=== PATIENT | male | born 1975 | race African-American/Black ===

== ENCOUNTER 2019-05-21 06:30 | Day surgery (SDC) | payer OTHER, MEDICAID ==
[~2019-05-21] VITALS: Ht 167.6 cm; Wt 52.3 kg
[~2019-05-21 06:30] MED LIST: RINGERS SOLUTION,LACTATED 1,000 ML IV ONE
[2019-05-21] MEDS ORDERED: DEXAMETHASONE SOD PHOS 4 MG/ML VIAL IVP ONE (06:31)
[2019-05-21] MEDS ORDERED: LIDOCAINE/PF 2% 5 ML VIAL IM ONE (06:31)
[2019-05-21] MEDS ORDERED: ONDANSETRON HCL 4 MG/2 ML VIAL IVP ONE (06:31)
[2019-05-21] MEDS ORDERED: 0.9% SODIUM CHLORIDE 10 ML VIAL IVP ONE (06:31)
[2019-05-21] MEDS ORDERED: SUCCINYLCHOLINE CHLORIDE 20 MG/ML 10 ML VIAL IVP ONE (06:31)
[2019-05-21] MEDS ORDERED: EPHEDrine SULFATE 50 MG/ML VIAL IM ONE (06:31)
[2019-05-21] MEDS ORDERED: PROPOFOL 1% 20 ML VIAL IVP ONE (06:31)
[2019-05-21] MEDS ORDERED: FentaNYL CITRATE-PF 100 MCG/2 ML VIAL IVP ONE (06:31)
[2019-05-21] MEDS ORDERED: RINGERS SOLUTION,LACTATED 1,000 ML IV ONE (07:00)
[2019-05-21] MEDS ORDERED: SODIUM CHLORIDE 0.9% 100 ML ONE (07:04)
[2019-05-21] MEDS ORDERED: AMPICILLIN SODIUM 1 GM/VIAL ONE (07:04)
[2019-05-21 07:46] LABS: BASOPHILS % (AUTO) 0.9 % (0.0-2.0); HEMATOCRIT 43.6 % (41-53); HEMOGLOBIN 14.8 g/dL (13.5-17.5); LYMPHOCYTES # (AUTO) 0.9 K/uL (1.0-4.8); LYMPHOCYTES % (AUTO) 23.2 % (22.0-44.0); MEAN CORPUSCULAR HEMOGLOBIN 31.3 pg (26.0-34.0); MEAN CORPUSCULAR VOLUME 92 fL (80-100); MONOCYTES # (AUTO) 0.5 K/uL (0.1-1.0); MONOCYTES % (AUTO) 11.9 % (2.0-9.0); NEUTROPHILS # (AUTO) 2.5 K/uL (1.8-7.7); PLATELET COUNT (AUTO) 221 K/uL (150-450); RED BLOOD CELL COUNT(AUTO) 4.74 MIL/uL (4.50-5.90); RED CELL DISTRIBUTION WIDTH 12.6 % (11.5-14.5)
[2019-05-21 07:55] LABS: ANION GAP 6 mmol/L (8-16); CALCIUM, TOTAL 8.9 mg/dL (8.8-10.5); CARBON DIOXIDE 31 mmol/L (22-29); CHLORIDE 105 mmol/L (98-107); CREATININE 0.87 mg/dL (0.60-1.30); GLOMERULAR FILTR. RATE CALC > 60 mL/min (>60); GLUCOSE,RANDOM 85 mg/dL (70-110); POTASSIUM 4.7 mmol/L (3.5-5.1); SODIUM SERUM 142 mmol/L (136-145); UREA NITROGEN, BLOOD 15 mg/dL (7-18)
[2019-05-21 07:57] LABS: INR 1.1 (0.9-1.1)
[2019-05-21 08:01] LABS: ALANINE AMINOTRANSFERASE 25 U/L (12-78); ALBUMIN 3.5 g/dL (3.4-5.0); ALKALINE PHOSPHATASE 176 U/L (46-116); ASPARTATE AMINOTRANSFERASE 15 U/L (15-37); BILIRUBIN,TOTAL 0.3 mg/dL (0.1-1.0); TOTAL PROTEIN, SERUM 8.4 g/dL (6.4-8.2)
[2019-05-21] MEDS ORDERED: MULT-1203 PO (08:22)
[2019-05-21] MEDS ORDERED: BUSP10TA23 PO (08:22)
[2019-05-21] MEDS ORDERED: DOCU-275 PO (08:22)
[2019-05-21] MEDS ORDERED: MOM30 PO (08:22)
[2019-05-21] MEDS ORDERED: SENN8.6T90 PO (08:22)
[2019-05-21] MEDS ORDERED: FOLI1 PO (08:22)
[2019-05-21] MEDS ORDERED: MINE454C11 TP (08:22)
[2019-05-21] MEDS ORDERED: DEBROX AU (08:22)
[2019-05-21] MEDS ORDERED: PHEN100C23 PO (08:22)
[2019-05-21] MEDS ORDERED: ASPI-1182 PO (08:22)
[2019-05-21] MEDS ORDERED: CLON.5 PO (08:22)
[2019-05-21] MEDS ORDERED: CHOL200059 PO (08:22)
[2019-05-21] MEDS ORDERED: HYDROmorphone 2 MG/ML SYRINGE IVP PRN (09:30)
[2019-05-21] MEDS ORDERED: MEPERIDINE-PF 25 MG/ML VIAL IVP PRN (09:30)
[2019-05-21] MEDS ORDERED: FentaNYL CITRATE-PF 100 MCG/2 ML VIAL IVP PRN (09:30)
[2019-05-21] MEDS ORDERED: OXYGEN THERAPY IH SCH (20:00)
== END 2019-05-21 12:55 | disposition home or self-care (01) ==
LOC: SURGERY 06:30
PROVIDERS: ATTEND Dentist General Practice
DX: K02.9 Dental caries, unspecified (principal); K05.30 Chronic periodontitis, unspecified; K03.6 Deposits [accretions] on teeth; F41.9 Anxiety disorder, unspecified; G40.909 Epilepsy, unspecified, not intractable, without status epilepticus; G80.9 Cerebral palsy, unspecified; F72 Severe intellectual disabilities; Z88.2 Allergy status to sulfonamides; Z88.6 Allergy status to analgesic agent; Z79.899 Other long term (current) drug therapy; Z79.01 Long term (current) use of anticoagulants; Z98.890 Other specified postprocedural states
CPT/HCPCS: 36415; 41899; 71045; 80053; 85025; 85610; 85730; 93005; J0290; J0330; J1100; J2405; J2704; J3010; J3490 ×2; J7050; J7120

== ENCOUNTER 2023-01-31 06:43 | Day surgery (SDC) | payer OTHER, MEDICAID ==
[~2023-01-31] VITALS: Ht 167.6 cm; Wt 53.2 kg
[~2023-01-31 06:43] MED LIST changes: +ASPI-1444 PO; +BUSP10TA23 PO; +CHOL200016 PO; +CLON-592 PO; +DEBROX AU; +DOCU-385 PO; +FOLI-130 PO; +MAGN-169 PO; +MINE454C11 TP; +MULT-1203 PO; +PHEN100C23 PO; +SENN8.6T90 PO
[2023-01-31] MEDS ORDERED: AMPICILLIN SODIUM 2 GM/NS 100 ML IV ONE (07:45)
[2023-01-31 07:54] LABS: BASOPHILS % (AUTO) 0.6 % (0.0-2.0); HEMATOCRIT 41.4 % (41-53); HEMOGLOBIN 13.9 g/dL (13.5-17.5); LYMPHOCYTES % (AUTO) 28.3 % (22.0-44.0); MEAN CORPUSCULAR HEMOGLOBIN 31.2 pg (26.0-34.0); MEAN CORPUSCULAR HGB CONC 33.7 G/dL (31.0-37.0); MEAN CORPUSCULAR VOLUME 93 fL (80-100); MONOCYTES # (AUTO) 0.3 K/uL (0.1-1.0); MONOCYTES % (AUTO) 8.8 % (2.0-9.0); NEUTROPHILS # (AUTO) 2.2 K/uL (1.8-7.7); NEUTROPHILS % (AUTO) 61.3 % (40.0-70.0); PLATELET COUNT (AUTO) 218 K/uL (150-450); RED BLOOD CELL COUNT(AUTO) 4.46 MIL/uL (4.50-5.90); RED CELL DISTRIBUTION WIDTH 12.7 % (11.5-14.5)
[2023-01-31] MEDS ORDERED: ACET-2247 PO (08:01)
[2023-01-31] MEDS ORDERED: ASCO500 PO (08:02)
[2023-01-31 08:07] LABS: INR 1.1 (0.9-1.1); PROTHROMBIN TIME 11.6 SEC (9.4-11.6)
[2023-01-31 08:13] LABS: ANION GAP 7 mmol/L (8-16); CALCIUM, TOTAL 9.7 mg/dL (8.8-10.5); CARBON DIOXIDE 30 mmol/L (22-29); CHLORIDE 104 mmol/L (98-107); CREATININE 0.86 mg/dL (0.60-1.30); GLOMERULAR FILTR. RATE CALC > 60 mL/min (>60); GLUCOSE,RANDOM 86 mg/dL (70-110); POTASSIUM 3.8 mmol/L (3.5-5.1); SODIUM SERUM 141 mmol/L (136-145)
[2023-01-31 08:18] LABS: ALANINE AMINOTRANSFERASE 12 U/L (12-78); ALBUMIN 3.5 g/dL (3.4-5.0); ALKALINE PHOSPHATASE 176 U/L (46-116); ASPARTATE AMINOTRANSFERASE 12 U/L (15-37); BILIRUBIN,TOTAL 0.2 mg/dL (0.1-1.0); TOTAL PROTEIN, SERUM 8.4 g/dL (6.4-8.2)
[2023-01-31] MEDS ORDERED: ONDANSETRON HCL 4 MG/2 ML VIAL IVP ONE (12:00)
[2023-01-31] MEDS ORDERED: DEXAMETHASONE SOD PHOS 4 MG/ML VIAL IVP ONE (12:00)
[2023-01-31] MEDS ORDERED: FentaNYL CITRATE PF 100 MCG/2 ML VIAL IVP ONE (12:00)
[2023-01-31] MEDS ORDERED: SUGAMMADEX SODIUM 200 MG/2 ML VIAL IVP ONE (12:00)
[2023-01-31] MEDS ORDERED: ROCURONIUM BROMIDE 10 MG/ML 5 ML VIAL IVP ONE (12:00)
[2023-01-31] MEDS ORDERED: LIDOCAINE/PF 2% 5 ML VIAL IM ONE (12:00)
[2023-01-31] MEDS ORDERED: PROPOFOL 1% 20 ML VIAL IVP ONE (12:00)
== END 2023-01-31 13:35 | disposition home or self-care (01) ==
LOC: SURGERY 06:43
PROVIDERS: ATTEND Dentist General Practice
DX: K05.30 Chronic periodontitis, unspecified (principal); K02.9 Dental caries, unspecified; K03.6 Deposits [accretions] on teeth; Z79.01 Long term (current) use of anticoagulants; Z79.899 Other long term (current) drug therapy; F41.9 Anxiety disorder, unspecified; G43.909 Migraine, unspecified, not intractable, without status migrainosus; K59.00 Constipation, unspecified; G80.9 Cerebral palsy, unspecified; F63.81 Intermittent explosive disorder
CPT/HCPCS: 41899; 71045; 80053; 85025; 85610; 85730; 36415; 93005; J0290; J2704; J1100; J3010; J3490 ×2; J2405; Q9967

== ENCOUNTER 2024-03-05 06:22 | Day surgery (SDC) | payer OTHER, MEDICAID ==
[~2024-03-05] VITALS: Ht 167.6 cm; Wt 55.9 kg
[~2024-03-05 06:22] MED LIST changes: +ACET-2247 PO; +ASCO500 PO; -DEBROX AU; -MINE454C11 TP
[2024-03-05] MEDS ORDERED: SODIUM CHLORIDE 0.9% 1,000 ML IV ONE (07:00)
[2024-03-05 07:57] LABS: BASOPHILS % (AUTO) 0.8 % (0.0-2.0); EOSINOPHILS % (AUTO) 1.5 % (1.0-6.0); HEMATOCRIT 40.9 % (41-53); HEMOGLOBIN 13.7 g/dL (13.5-17.5); LYMPHOCYTES # (AUTO) 0.8 K/uL (1.0-4.8); LYMPHOCYTES % (AUTO) 23.5 % (22.0-44.0); MEAN CORPUSCULAR HEMOGLOBIN 30.9 pg (26.0-34.0); MEAN CORPUSCULAR HGB CONC 33.5 G/dL (31.0-37.0); MEAN CORPUSCULAR VOLUME 92 fL (80-100); MONOCYTES # (AUTO) 0.5 K/uL (0.1-1.0); MONOCYTES % (AUTO) 12.6 % (2.0-9.0); NEUTROPHILS # (AUTO) 2.2 K/uL (1.8-7.7); NEUTROPHILS % (AUTO) 61.6 % (40.0-70.0); PLATELET COUNT (AUTO) 204 K/uL (150-450); RED BLOOD CELL COUNT(AUTO) 4.43 MIL/uL (4.50-5.90); RED CELL DISTRIBUTION WIDTH 12.7 % (11.5-14.5); WHITE BLOOD COUNT (AUTO) 3.6 K/uL (4.5-11.0)
[2024-03-05 08:05] LABS: PROTHROMBIN TIME 10.9 SEC (9.4-11.6)
[2024-03-05 08:09] LABS: ANION GAP 9 mmol/L (8-16); CALCIUM, TOTAL 9.2 mg/dL (8.8-10.5); CARBON DIOXIDE 30 mmol/L (22-29); CHLORIDE 101 mmol/L (98-107); CREATININE 0.76 mg/dL (0.60-1.30); GLOMERULAR FILTR. RATE CALC > 60 mL/min (>60); GLUCOSE,RANDOM 89 mg/dL (70-110); POTASSIUM 3.9 mmol/L (3.5-5.1); SODIUM SERUM 139 mmol/L (136-145); UREA NITROGEN, BLOOD 13 mg/dL (7-18)
[2024-03-05 08:19] LABS: ALANINE AMINOTRANSFERASE 19 U/L (12-78); ALKALINE PHOSPHATASE 128 U/L (46-116); ASPARTATE AMINOTRANSFERASE 15 U/L (15-37); BILIRUBIN,TOTAL 0.2 mg/dL (0.1-1.0); TOTAL PROTEIN, SERUM 8.3 g/dL (6.4-8.2)
[2024-03-05] MEDS ORDERED: AMPICILLIN SODIUM 2 GM/NS 100 ML IV ONE (08:19)
[2024-03-05] MEDS ORDERED: RINGERS SOLUTION,LACTATED 1,000 ML IV ONE (08:45)
[2024-03-05] MEDS ORDERED: FentaNYL CITRATE PF 100 MCG/2 ML VIAL IVP PRN (13:15)
[2024-03-05] MEDS: LIDOCAINE 1%/EPI 1:200,000/PF 30 ML VIAL ONE (15:18)
[2024-03-05] MEDS ORDERED: OXYGEN THERAPY IH SCH (20:00)
== END 2024-03-05 15:15 | disposition home or self-care (01) ==
LOC: SURGERY 06:22
PROVIDERS: ATTEND Dentist General Practice
DX: K05.30 Chronic periodontitis, unspecified (principal); K02.9 Dental caries, unspecified; G80.9 Cerebral palsy, unspecified; Z79.899 Other long term (current) drug therapy
CPT/HCPCS: 41899; 71045; 80053; 85025; 85610; 85730; 36415; 93005; J0290; J3490; J7120

== ENCOUNTER 2025-06-17 06:03 | Day surgery (SDC) | payer OTHER, MEDICAID ==
[~2025-06-17] VITALS: Ht 167.6 cm; Wt 55.9 kg
[~2025-06-17 06:03] MED LIST changes: -RINGERS SOLUTION,LACTATED 1,000 ML IV ONE; -SENN8.6T90 PO; +[UNRECOGNIZED DRUG - CODE] PO
[2025-06-17] MEDS ORDERED: RINGERS SOLUTION,LACTATED 1,000 ML IV ONE (07:19)
[2025-06-17 07:26] LABS: PLATELET COUNT (AUTO) 214 K/uL (150-450); RED BLOOD CELL COUNT(AUTO) 4.59 MIL/uL (4.50-5.90); RED CELL DISTRIBUTION WIDTH 13.1 % (11.5-14.5); WHITE BLOOD COUNT (AUTO) 2.8 K/uL (4.5-11.0)
[2025-06-17 07:41] LABS: CALCIUM, TOTAL 8.9 mg/dL (8.8-10.5); CREATININE 0.68 mg/dL (0.60-1.30); GLOMERULAR FILTR. RATE CALC > 60 mL/min (>60); GLUCOSE,RANDOM 84 mg/dL (70-110); SODIUM SERUM 139 mmol/L (136-145); UREA NITROGEN, BLOOD 14 mg/dL (7-18)
[2025-06-17 07:44] LABS: ASPARTATE AMINOTRANSFERASE 16 U/L (15-37); TOTAL PROTEIN, SERUM 8.2 g/dL (6.4-8.2)
[2025-06-17] MEDS ORDERED: AMPICILLIN SODIUM 2 GM/NS 100 ML IV ONE (08:09)
[2025-06-17] MEDS: RINGERS SOLUTION,LACTATED 1,000 ML IV ONE (08:58)
[2025-06-17] MEDS ORDERED: GLYCOPYRROLATE 0.2 MG/ML VIAL ONE (09:01)
[2025-06-17] MEDS ORDERED: SUGAMMADEX SODIUM 200 MG/2 ML VIAL IVP ONE (09:01)
[2025-06-17] MEDS ORDERED: ONDANSETRON HCL 4 MG/2 ML VIAL ONE (09:01)
[2025-06-17] MEDS ORDERED: PROPOFOL 1% 20 ML VIAL IVP ONE (09:01)
[2025-06-17] MEDS ORDERED: ROCURONIUM BROMIDE 10 MG/ML 5 ML VIAL ONE (09:01)
== END 2025-06-17 12:50 | disposition home or self-care (01) ==
LOC: SURGERY 06:03
PROVIDERS: ATTEND Dentist General Practice
DX: K05.20 Aggressive periodontitis, unspecified (principal); K02.9 Dental caries, unspecified; K03.6 Deposits [accretions] on teeth; G80.9 Cerebral palsy, unspecified
CPT/HCPCS: 41899; 71045; 80053; 85025; 85610; 85730; 36415; 93005; J0290; J2704; J3490 ×3; J2405; J7120